=== PATIENT | male | born 1955 | race African-American/Black ===

== ENCOUNTER 2019-11-07 08:44 | Emergency (ER) | payer MEDICAID ==
[~2019-11-07] VITALS: Ht 160 cm; Wt 73.0 kg
[2019-11-07] MEDS ORDERED: LIDOCAINE HCL/EPINEPHRINE 1%-EPI 1:100,000 20 ML VIAL INFIL ONE (09:13)
[2019-11-07] MEDS ORDERED: TETANUS, DIPHTHERIA, PERTUSSIS VAC/PF 0.5ML (>7YR OLD) IM ONE (09:15)
[2019-11-07] MEDS ORDERED: BACITRACIN ZINC OINT UDPKT TOP ONE (09:15)
[2019-11-07] MEDS ORDERED: CEFTRIAXONE SODIUM 1 G/VIAL IM ONE (11:00)
[2019-11-07] MEDS ORDERED: LIDOCAINE HCL 1% 20ML VIAL (Pyxis) INJ INFIL ONE (11:00)
[2019-11-07 11:32] VITALS: BP 142/89
== END 2019-11-07 11:32 | disposition home or self-care (01) ==
LOC: ER 08:44
DX: S51.012A Laceration without foreign body of left elbow, initial encounter (principal); X99.0XXA Assault by sharp glass, initial encounter; Y93.89 Activity, other specified; Y92.89 Other specified places as the place of occurrence of the external cause; R03.0 Elevated blood-pressure reading, without diagnosis of hypertension; Z23 Encounter for immunization
CPT/HCPCS: 90471; 90715; 96372; 99284; J0696; J3490

== ENCOUNTER 2019-11-08 15:33 | Emergency (ER) | payer MEDICAID, OTHER ==
[~2019-11-08] VITALS: Ht 172.7 cm; Wt 81.0 kg
[2019-11-08 15:41] VITALS: BP 111/89
== END 2019-11-08 17:12 | disposition left against medical advice (07) ==
LOC: ER 15:33
DX: H92.03 Otalgia, bilateral (principal); R51 Headache; R42 Dizziness and giddiness
CPT/HCPCS: 99283

== ENCOUNTER 2019-12-22 11:46 | Emergency (ER) | payer MEDICAID ==
[~2019-12-22] VITALS: Ht 165.1 cm; Wt 66.0 kg
[2019-12-22] MEDS ORDERED: BACITRACIN ZINC OINT UDPKT TOP ONE (12:15)
[2019-12-22] MEDS ORDERED: ACETAMINOPHEN 325MG TABLET PO ONE (12:15)
[2019-12-22 12:41] VITALS: BP 159/93
== END 2019-12-22 12:41 | disposition home or self-care (01) ==
LOC: ER 11:46
DX: S41.112D Laceration without foreign body of left upper arm, subsequent encounter (principal); Z76.0 Encounter for issue of repeat prescription; X58.XXXD Exposure to other specified factors, subsequent encounter
CPT/HCPCS: 99283

== ENCOUNTER 2025-04-01 18:32 | Emergency (ER) | payer MEDICAID ==
[~2025-04-01] VITALS: Ht 165.1 cm; Wt 77.0 kg
[2025-04-01 18:33] VITALS: O2SAT 98
[2025-04-01 18:41] VITALS: BP 147/117; PULSE 94; RESP 19; TEMP 37.2; O2SAT 97
== END 2025-04-01 20:29 | disposition left against medical advice (07) ==
LOC: ER 18:32
DX: R06.02 Shortness of breath (principal)
CPT/HCPCS: 71045; 93005; 99281; 99283